=== PATIENT | female | born 1950 | race Asian ===

== ENCOUNTER 2017-02-18 09:24 | Emergency (ER) | payer OTHER ==
[~2017-02-18] VITALS: Ht 167.6 cm; Wt 59.0 kg
[2017-02-18 09:27] VITALS: BP_SYST 125
[2017-02-18] MEDS ORDERED: ACETAMINOPHEN 500 MG TABLET PO ONE (10:45)
[2017-02-18 11:00] VITALS: BP_SYST 124
== END 2017-02-18 11:00 | disposition home or self-care (01) ==
LOC: SED 09:24
DX: M13.811 Other specified arthritis, right shoulder (principal); Z88.0 Allergy status to penicillin
CPT/HCPCS: 73030; 99284; J7030